=== PATIENT | female | born 1970 | race Caucasian/White ===

== ENCOUNTER 2017-01-27 10:14 | Day surgery (SDC) | payer OTHER ==
[~2017-01-27] VITALS: Ht 162.6 cm; Wt 88.5 kg
[~2017-01-27 10:14] MED LIST: AMLODIPINE BESYL5 MG PO; ASPIR-LOW81 MG PO; BENTYL20 MG; BIOTIN1000 MICRO PO; CARDIZEM CD120 MG PO; CHANTIX1 EACH PO; DOXYCYCLINE HY100 MG PO; ENDOCET 5-3251 EACH; LEVAQUIN750 MG PO; NOHOMEMEDS; PROTONIX40 MG PO; RANITIDINE HCL150 MG PO; REGLAN5 MG PO; VITAMIN B122500 MCG PO
[2017-01-27 10:50] VITALS: BP 130/89
[2017-01-27 14:20] VITALS: BP 107/62
[2017-01-27 14:55] VITALS: BP 133/74
== END 2017-01-27 15:05 | disposition home or self-care (01) ==
LOC: SDC 10:14
DX: M19.041 Primary osteoarthritis, right hand (principal); M77.01 Medial epicondylitis, right elbow; M89.9 Disorder of bone, unspecified; I10 Essential (primary) hypertension; K21.9 Gastro-esophageal reflux disease without esophagitis; Z87.891 Personal history of nicotine dependence
CPT/HCPCS: J1030; J1885; J2250; J3010; S0020

== ENCOUNTER 2017-09-29 12:29 | Day surgery (SDC) | payer OTHER ==
[~2017-09-29] VITALS: Ht 162.6 cm; Wt 90.0 kg
[~2017-09-29 12:29] MED LIST changes: -RANITIDINE HCL150 MG PO; +RANITIDINE HCL300 M1 PO; +VITAMIN B-121000 MC3 PO; -VITAMIN B122500 MCG PO
[2017-09-29 13:10] VITALS: BP 147/95
[2017-09-29 18:10] VITALS: BP 127/73
[2017-09-29 19:10] VITALS: BP 128/75
== END 2017-09-29 19:33 | disposition home or self-care (01) ==
LOC: SDC 12:29
PROC: 0PBC0ZZ Excision of Right Humeral Head, Open Approach (ICD-10-PCS; principal; 2017-09-29)
DX: M77.11 Lateral epicondylitis, right elbow (principal); I10 Essential (primary) hypertension; K21.9 Gastro-esophageal reflux disease without esophagitis; Z87.891 Personal history of nicotine dependence
CPT/HCPCS: J0131; J0690; J1100; J1170; J2175; J2250; J2405; J3010; J7120; Q0175; S0020